=== PATIENT | female | born 2000 | race Hispanic/Latino ===

== ENCOUNTER 2025-03-09 20:43 | Day surgery (SDC) | payer OTHER ==
[2025-03-09 21:08] VITALS: BMI 34.2
[2025-03-09] MEDS ORDERED: hydrALAZINE 20 MG/ML VIAL SLOW IVP PRN (21:30)
[2025-03-09 21:50] LABS: Fetal Membranes Rupture No Membranes Rupture (No Rupture)
[2025-03-09 22:16] LABS: Glucose, Urine (Dipstick) Normal (Negative); Leukocyte Negative (Negative); Protein, Urine (Dipstick) 30 mg/dl (Neg-Trace); Specific Gravity, Urine 1.015 (1.005-1.030)
[2025-03-09 22:26] LABS: Bacteria/HPF None Seen HPF (None Seen); CAUTI Indications for Culture Pregnancy; RBC/HPF None Seen HPF (0-3); WBC/HPF None Seen HPF (0-3)
[2025-03-09 22:27] LABS: Urine Culture Reflex Yes Yes
== END 2025-03-09 23:42 | disposition home or self-care (01) ==
LOC: CSHLD/OP 20:43
PROVIDERS: ATTEND Family Medicine
DX: Z03.71 Encounter for suspected problem with amniotic cavity and membrane ruled out (principal); O47.03 False labor before 37 completed weeks of gestation, third trimester; Z3A.36 36 weeks gestation of pregnancy; Z67.40 Type O blood, Rh positive
CPT/HCPCS: 81001; 84112; 87086; 99285